=== PATIENT | male | born 1975 | race Caucasian/White ===

== ENCOUNTER 2019-01-24 20:30 | Emergency (ER) | payer MEDICAID ==
[~2019-01-24] VITALS: Ht 172.7 cm; Wt 77.1 kg
[2019-01-24 20:30] VITALS: BP 133/84
[~2019-01-24 20:30] MED LIST: LOSARTAN POTASS25 MG ORAL
--- NOTE | 2019-01-24 21:27 | NUR ---
ED Nurse Note: Endorsed to Mariela for continue care.Pt is a/o x4. VSS.
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
--- NOTE | 2019-01-24 22:39 | NUR ---
HAND-OFF: Report received from Mariela SOU[facility].
--- NOTE | 2019-01-24 22:40 | NUR ---
ED Nurse Note: Patient resting flids running, labs currently being taken down. will continue neuro checks. Patient informed of NPO status.
[2019-01-24 23:12] LABS: HEMATOCRIT 46.2 % (42.0-52.0); HEMOGLOBIN 15.9 G/DL (14.2-18.0); MEAN CORPUSCULAR VOLUME 91 FL (80-99); PLATELET COUNT 100 K/UL (150-450); RED BLOOD COUNT 5.07 M/UL (4.70-6.10); RED CELL DISTRIBUTION WIDTH 12.4 % (11.6-14.8); WHITE BLOOD COUNT 4.5 K/UL (4.8-10.8)
[2019-01-24] MEDS ORDERED: Morphine Sulfate 2mg/ml Inj(IV/IM USE ONLY) IVP ONE (23:15)
[2019-01-24 23:20] LABS: ANION GAP 11 mmol/L (5-15); BLOOD UREA NITROGEN 16 mg/dL (7-18); CALCIUM 8.2 MG/DL (8.5-10.1); CARBON DIOXIDE 28 MMOL/L (21-32); CHLORIDE 105 MMOL/L (98-107); SODIUM 144 MMOL/L (136-145)
--- NOTE | 2019-01-24 23:35 | NUR ---
ED Nurse Note: Patient awake and alert, pupils equal and reactive to light. Patient still has complaints of knee pain 8/10 at this time. vital signs stable.
[2019-01-24 23:36] LABS: ALANINE AMINOTRANSFERASE 39 U/L (12-78); ALBUMIN 3.5 G/DL (3.4-5.0); ALBUMIN/GLOBULIN RATIO 0.9 (1.0-2.7); ALKALINE PHOSPHATASE 97 U/L (46-116); ASPARTATE AMINO TRANSFERASE 67 U/L (15-37); BILIRUBIN,TOTAL 0.3 MG/DL (0.2-1.0); CKMB 1.8 NG/ML (0.0-3.6); CREATINE KINASE 243 U/L (26-308)
[2019-01-24 23:37] VITALS: BP 140/92
--- NOTE | 2019-01-25 00:01 | NUR ---
ED Nurse Note: CAlled in report to Ayan [facility] at [facility], with [facility] on the line. Transport to arrive any moment for corn picker.
--- NOTE | 2019-01-25 00:32 | NUR ---
ED Nurse Note: Patient picked up by ALS, vital signs stable, no s/s of acute distress. Patient A&Ox3, report called in prior to pharmacy picking technician. Report given to ALS RN.
[2019-01-25 00:33] VITALS: BP 140/92
--- NOTE | 2019-01-25 19:15 | Diagnostic Imaging Report ---
Indication: Dyspnea Comparison: None A single view chest radiograph was obtained. Findings: Study is limited by lordotic projection angle. Cardiomediastinal appearance is likely within normal limits for age. The lungs are clear. Pulmonary vascularity is appropriate. The diaphragmatic contour is smooth and costophrenic angles are sharp. No obvious pleural effusions are identified. The bones are unremarkable. Impression: No acute findings
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
--- NOTE | 2019-01-25 19:17 | Cardiology Report ---
APPROVED REPORT EKG Measurement Heart [id number] [id number] Normal sinus rhythm Normal ECG
== END 2019-01-25 00:34 | disposition short-term general hospital (02) ==
LOC: EDBD 20:30 → EMR 21:00
DX: I61.9 Nontraumatic intracerebral hemorrhage, unspecified (principal); F10.129 Alcohol abuse with intoxication, unspecified; S50.812A Abrasion of left forearm, initial encounter; X58.XXXA Exposure to other specified factors, initial encounter; Y92.9 Unspecified place or not applicable; I10 Essential (primary) hypertension
CPT/HCPCS: 36415; 70450; 71045; 80053; 80329; 82550; 82553; 84484; 85025; 85610; 85730; 93005; 96374; 96375; 99291; J2270; J2405; J7040